=== PATIENT | female | born 2000 | race African-American/Black ===

== ENCOUNTER 2023-05-27 10:56 | Emergency (ER) | payer OTHER, MEDICAID | END 2023-05-27 12:43 | disposition home or self-care (01) | LOC: NAV ERS 10:56 | DX: S39.012A Strain of muscle, fascia and tendon of lower back, initial encounter (principal); V89.2XXA Person injured in unspecified motor-vehicle accident, traffic, initial encounter | CPT/HCPCS: 72100 ==